=== PATIENT | female | born 1990 | race Caucasian/White ===

== ENCOUNTER 2025-03-27 15:21 | Outpatient (AMB) | payer OTHER, SELFPAY ==
--- NOTE | 2025-03-27 15:26 | MHC.PC.OV ---
Vital Signs 03/27/25 15:30 Height 5 ft 5.5 in Weight 181 lb BMI 29.7 BP 122/80 Blood Pressure Location Lt brachial Position Sitting Respiration 16 Pulse 76 Pulse Source Pulse Oximeter Temp 97.3 F Temp Source Temporal Artery Scan Pulse Oximetry (%) 98 Oxygen Delivery Method Room Air Intake Visit Reasons: New Patient [employer] Required: No Accompanied by: Self / Same As Patient Allergies doxycycline Allergy (Severe, Verified 03/27/25 15:33) unable to swallow Medication List - Last Reconciled 03/27/25 by Jasmyn Florez MD dextroamphetamine-amphetamine 15 mg ER (Adderall XR) 1 cap PO QAM Tobacco use date assessed: 03/27/25 Dental Screening Dental Screen Date: 03/27/25 Did you have a dental visit in the last 12 months?: Yes Did you have a dental problem in the last 6 months where you did not have access to dental care?: No Was dental information given to patient?: Patient has dentist HPI HPI Comments History of Present Illness Details The patient is a 34 year old female presenting to [facility]. The patient felt well for three years after a major surgery but experienced a flare-up of ovarian related symptoms six months ago. Ovarian Cysts and Endometriosis/PCOS: The patient has a history of recurrent surgeries for ovarian issues every 2-3 years, with the first at age 18. Six months ago, the patient experienced a flare-up of ovarian pain while in [place] and saw a specialist who found ovarian cysts on ultrasound. The patient recently started seeing Dr. Goldstein, who also confirmed cysts on an ultrasound two weeks ago and has another ultrasound scheduled next week to determine treatment. Due to the history of recurrent endometriosis and surgeries, Dr. Goldstein has discussed the possibility of a total hysterectomy with bilateral salpingo-oophorectomy to prevent future procedures. Abnormal Weight Gain: The patient reports significant weight gain, reaching 180 pounds from an ideal weight of 167 pounds. This weight gain occurred despite working with a personal protection specialist four days a week and adhering to a strict calorie-deficit diet for the past three months. Suspected Autoimmune Disorder: The patient reports ongoing, undiagnosed symptoms suggestive of an autoimmune disorder, experiencing flare-ups approximately every three years. Previous evaluation by vice president of academic affairs, Dr. Strickland was inconclusive. Has history of low immunoglobulin levels. Fatigue: The patient has experienced significant fatigue over the past few months. About one month ago, a cousin who is a physician prescribed iron and vitamin D supplements and administered a B12 shot, which has led to some improvement in energy levels. [facility] Medical History (Updated 03/27/25 @ 17:56 by Jasmyn Florez MD) Sepsis Endometriosis Fatigue Depression with anxiety Colitis Subclinical hyperthyroidism IgG4 subclass deficiency Surgical History (Updated 03/27/25 @ 17:56 by Jasmyn Florez MD) History of left salpingectomy Ovarian cyst Family History Other Diabetes mellitus Family history of thyroid problem Fibromyalgia Primary hypertension Social History Housing: House Patient Tobacco Use Status: Former Tobacco user Years Smoked: 10+ years e-Cigarette/Vaping Use: Currently Using service: No Current occupational status: employed Current occupation: [employer] Cognitive needs: No Hearing needs: No Vision needs: No Questionnaire PHQ-9 Over the last 2 weeks, how often have you been bothered by any of the following problems? 1. Little interest or pleasure in doing things: more than half the days 2. Feeling down, depressed, or hopeless: more than half the days 3. Trouble falling or staying asleep, or sleeping too much: more than half the days 4. Feeling tired or having little energy: nearly every day 5. Poor appetite or overeating: several days 6. Feeling bad about yourself - or that you are a failure or have let yourself or your family down: several days 7. Trouble concentrating on things, such as reading the newspaper or watching television: nearly every day 8. Moving or speaking so slowly that other people could have noticed. Or the opposite - being so fidgety or restless that you have been moving around a lot more than usual: not at all 9. Thoughts that you would be better off or of hurting yourself in some way: not at all Total score: 14 Depression Screening Interpretation: Positive Depression Screening Done: Yes 58147 - PHQ-9 Billing: Yes Source: Developed by Drs. Fareed Jasso, Shira Garcia, John Jacome and colleagues, with an educational thuy from [employer]. Thrive Questionnaire Date Thrive assessed: 03/27/25 I am a: Patient What is your living situation today?: I have a steady place to live Within the past 12 months, did the food you bought not last and you didn't have the money to get more?: Never true Within the past 12 months, did you worry whether your food would run out before you got money to buy more?: I choose not to answer this question Do you have trouble paying for medicines?: I choose not to answer this question Do you have trouble getting transportation to medical appointments?: No Do you have trouble paying your heating and electricity bill?: I choose not to answer this question Do you have trouble taking care of your child, family member or friend?: No Do you have trouble with day-to-day activities such as bathing, preparing meals, shopping, managing finances, etc.?: No Are you currently unemployed and looking for a job?: Yes Are you interested in more education?: I choose not to answer this question Please select the resources that you would like help with: None Currently or been in a relationship where the following occur: No concerns reported THRIVE Score: 0 AUDIT C Alcohol Use Questionnaire (AUDIT-C) 1. How often do you have a drink containing alcohol?: Never 3. How often do you have six or more drinks on one occasion?: Never Total Score: 0 DALTON-7 AMB Questionnaire DALTON-7 Date DALTON - 7 assessed: 03/27/25 Feeling nervous, anxious, or on edge: 3 = Nearly every day Not being able to stop or control worryin = Nearly every day Worrying too much about different things: 3 = Nearly every day Trouble relaxin = Nearly every day Being so restless that it is hard to sit still: 3 = Nearly every day Becoming easily annoyed or irritable: 3 = Nearly every day Feeling afraid as if something awful might happen: 3 = Nearly every day Total DALTON-7 score (0-4 normal; 5-9 mild; 10-14 moderate; 15-21 severe): 21 Source: Developed by Drs. Fareed Jasso, Shira Garcia, John aJcome and colleagues, with an educational thuy from [employer]. Review of Systems Narrative Review of Systems - Constitutional: Reports significant fatigue which is improving with supplements, and abnormal weight gain despite diet and exercise. - Gastrointestinal: Reports bloating and abdominal hardness. Denies significant nausea or constipation, stating bowel habits are variable but overall normal. - Genitourinary/Gynecological: Reports history of ovarian pain with flare-ups. - Psychiatric: Reports significant stress and anxiety. The patient has stopped taking Ativan. Physical exam (Primary Care) Vital Signs: Last Vital Signs Temp 97.3 F 03/27/25 15:30 Pulse 76 03/27/25 15:30 Resp 16 03/27/25 15:30 BP 122/80 03/27/25 15:30 Pulse Ox 98 03/27/25 15:30 Oxygen Delivery Method Room Air 03/27/25 15:30 BMI result Body Mass Index 29.7 Tobacco/Smoking Status: Tobacco use Status Tobacco use date assessed 03/27/25 03/27/25 15:28 Patient Tobacco Use Status Former Tobacco user 03/27/25 15:37 e-Cigarette/Vaping Use Currently Using 03/27/25 15:37 PHQ-9: PHQ-9 Score PHQ-9: Total score 14 03/27/25 15:37 Depression Screening Interpretation: Positive Thrive Assessment: Date of Thrive Assessment Date Thrive assessed 03/27/25 03/27/25 15:28 Currently or been in a relationship where the following occur: No concerns reported Narrative Physical Exam - HEENT: External auditory canals and tympanic membranes are clear. Throat is non-erythematous. - Neck/Lymphatic: No tenderness on palpation of cervical or supraclavicular lymph nodes. -Lungs: Clear to auscultation bilaterally, no wheezing. - Cardiovascular: Normal heart sounds. - Abdomen: Tender to palpation in bilateral lower quadrants, some distension, normoactive bowel sounds. Coding Level of Care Code Est Pt Level 4 (56863) Complex visit Add On G2211 Diagnoses IgG4 subclass deficiency D80.3 Fatigue, unspecified type R53.83 Fatigue type: unspecified Endometriosis N80.9 Additional Codes PHQ-9 - 38613 - PHQ-9 Billing: Yes ([id number]) Assessment & Plan Assessment & Plan (1) IgG4 subclass deficiency: Code(s): D80.3 - Selective deficiency of immunoglobulin G [IgG] subclasses Category: Medical (2) Fatigue: Code(s): R53.83 - Other fatigue Category: Medical Qualifiers: Fatigue type: unspecified Qualified Code(s): R53.83 - Other fatigue (3) Endometriosis: Code(s): N80.9 - Endometriosis, unspecified Category: Medical Plan Assessment and Plan 1. Unexplained Weight Gain - The patient reports significant weight gain despite aggressive lifestyle modifications, differential includes a hormonal or metabolic cause, possibly related to PCOS. - Plan includes ordering comprehensive labs and then initiating Zepbound trial 2. Suspected Autoimmune Disorder - The patient's history of recurrent flares and non-specific lab abnormalities warrants further investigation. - The plan is to order a comprehensive lab panel including CBC, blood cultures, full rheumatology markers (KURTIS, lupus panel), immunoglobulins (IgG), thyroid panel, and cortisol. - If immunoglobulins are abnormal, a referral will be placed to Hematology. 3. PCOS, Ovarian Cysts and Endometriosis - The plan is for the patient to continue this follow-up with [facility], with another ultrasound scheduled next week to guide further management. 4. Fatigue - The patient's fatigue has improved with recent supplementation of iron, vitamin D, and B12. - The planned lab work will reassess these levels (folate, B12, vitamin D) to evaluate response to treatment. - The patient will provide prior lab results for comparison. 5. Tobacco Use Disorder - The patient has successfully quit smoking cigarettes and now uses an electric vape occasionally. . Plan - Order comprehensive fasting labs, including CBC, blood cultures, full rheumatology panel, immunoglobulins, thyroid panel, cortisol, folate, B12, and a metabolic panel. - After labs are reviewed, will prescribe Zepbound for weight management - Based on lab results, particularly immunoglobulin levels, a referral to hematology will be considered. - Patient to continue follow-up with [facility] [employer] Dr. Goldstein for management of ovarian cysts and endometriosis. - Will request consult notes from vice president of academic affairs Dr. Hinds's office. - Schedule a follow-up visit in three months Discussion Notes I discussed with the patient the comprehensive plan to investigate the underlying causes of the ongoing symptoms, including significant weight gain, fatigue, and a suspected autoimmune condition. I explained the rationale for ordering an extensive panel of fasting labs to identify any hematologic, rheumatologic, or endocrine abnormalities, which could then guide a referral to a supervisor major appliance assembly if necessary. Patient Instructions - Please go for fasting blood tests. Do not eat or drink anything except water for 8-12 hours before your appointment. - These tests will check your blood counts, hormone levels, vitamins, and look for signs of an autoimmune condition. - After we get your lab results, we will discuss starting a weekly injection called Zepbound to help with weight loss. Orders: Orders Anti DNA DS Antibody Today D80.3 - Selective deficiency of immunoglobulin G [IgG] subclasses, E05.90 - Thyrotoxicosis, unspecified without thyrotoxic crisis or storm, R53.83 - Other fatigue Comprehensive Met. Panel Today D80.3 - Selective deficiency of immunoglobulin G [IgG] subclasses, E05.90 - Thyrotoxicosis, unspecified without thyrotoxic crisis or storm, R53.83 - Other fatigue Cortisol Random Today D80.3 - Selective deficiency of immunoglobulin G [IgG] subclasses, E05.90 - Thyrotoxicosis, unspecified without thyrotoxic crisis or storm, R53.83 - Other fatigue Cyclic Citrullinated Peptide Today D80.3 - Selective deficiency of immunoglobulin G [IgG] subclasses, E05.90 - Thyrotoxicosis, unspecified without thyrotoxic crisis or storm, R53.83 - Other fatigue Vitamin B12 Today D80.3 - Selective deficiency of immunoglobulin G [IgG] subclasses, E05.90 - Thyrotoxicosis, unspecified without thyrotoxic crisis or storm, R53.83 - Other fatigue TSH reflex Free T4 Today D80.3 - Selective deficiency of immunoglobulin G [IgG] subclasses, E05.90 - Thyrotoxicosis, unspecified without thyrotoxic crisis or storm, R53.83 - Other fatigue Sm Sm/TRUSS MAKER Antibodies Today D80.3 - Selective deficiency of immunoglobulin G [IgG] subclasses, E05.90 - Thyrotoxicosis, unspecified without thyrotoxic crisis or storm, R53.83 - Other fatigue Rheumatoid Factor Today D80.3 - Selective deficiency of immunoglobulin G [IgG] subclasses, E05.90 - Thyrotoxicosis, unspecified without thyrotoxic crisis or storm, R53.83 - Other fatigue Hemoglobin A1c Today D80.3 - Selective deficiency of immunoglobulin G [IgG] subclasses, E05.90 - Thyrotoxicosis, unspecified without thyrotoxic crisis or storm, R53.83 - Other fatigue Folate Today D80.3 - Selective deficiency of immunoglobulin G [IgG] subclasses, E05.90 - Thyrotoxicosis, unspecified without thyrotoxic crisis or storm, R53.83 - Other fatigue Ferritin Today D80.3 - Selective deficiency of immunoglobulin G [IgG] subclasses, E05.90 - Thyrotoxicosis, unspecified without thyrotoxic crisis or storm, R53.83 - Other fatigue Vitamin B1 Today D80.3 - Selective deficiency of immunoglobulin G [IgG] subclasses, E05.90 - Thyrotoxicosis, unspecified without thyrotoxic crisis or storm, R53.83 - Other fatigue Blood Culture X2 Today R53.83 - Other fatigue KURTIS Reflex Titer and Pattern Today D80.3 - Selective deficiency of immunoglobulin G [IgG] subclasses, E05.90 - Thyrotoxicosis, unspecified without thyrotoxic crisis or storm, R53.83 - Other fatigue Complete Blood Count Auto Diff Today D80.3 - Selective deficiency of immunoglobulin G [IgG] subclasses, E05.90 - Thyrotoxicosis, unspecified without thyrotoxic crisis or storm, R53.83 - Other fatigue Immunoglobulin G Subclasses Today D80.3 - Selective deficiency of immunoglobulin G [IgG] subclasses, E05.90 - Thyrotoxicosis, unspecified without thyrotoxic crisis or storm, R53.83 - Other fatigue C Reactive Protein Today D80.3 - Selective deficiency of immunoglobulin G [IgG] subclasses, E05.90 - Thyrotoxicosis, unspecified without thyrotoxic crisis or storm, R53.83 - Other fatigue Erythrocyte Sedimentation Rate Today D80.3 - Selective deficiency of immunoglobulin G [IgG] subclasses, E05.90 - Thyrotoxicosis, unspecified without thyrotoxic crisis or storm, R53.83 - Other fatigue Vitamin D 25-OH Total Today D80.3 - Selective deficiency of immunoglobulin G [IgG] subclasses, E05.90 - Thyrotoxicosis, unspecified without thyrotoxic crisis or storm, R53.83 - Other fatigue Lipid Panel Today D80.3 - Selective deficiency of immunoglobulin G [IgG] subclasses, E05.90 - Thyrotoxicosis, unspecified without thyrotoxic crisis or storm, R53.83 - Other fatigue Thyroid Peroxidase Antibodies Today D80.3 - Selective deficiency of immunoglobulin G [IgG] subclasses, E05.90 - Thyrotoxicosis, unspecified without thyrotoxic crisis or storm, R53.83 - Other fatigue IRON PROFILE Today D80.3 - Selective deficiency of immunoglobulin G [IgG] subclasses, E05.90 - Thyrotoxicosis, unspecified without thyrotoxic crisis or storm, R53.83 - Other fatigue Magnesium Today D80.3 - Selective deficiency of immunoglobulin G [IgG] subclasses, R53.83 - Other fatigue
[2025-03-27 15:30] VITALS: BP 122/80; PULSE 76; RESP 16; TEMP 36.3; O2SAT 98; BMI 29.7
--- OUTSIDE RECORDS SUMMARY | 2025-03-27 18:23 | XMS_ITS | Encounter Summary ---
Author Organization [facility] Address [address] [place] [phone] Phone Care Team Providers Care Membership Director Name Role Phone Jasmyn Florez MD Primary Care Provider + Encounter Details Date Type Department Care Team (Late st Contact Info) Description 09/11/2021 Procedure Pass [facility] Periop 1st floor [address] [place] [address] Social History Tobacco Use Types Packs/Day Years Used Date Smoking Tobacco: Every Day Cigarettes Smokeless Tobacco: Never Alcohol Use Standard Drinks/Week Comments Never 0 (1 standard drink = 0.6 oz pur e alcohol) Comments No Sex and Gender Information Value Date Recorded Sex Assigned at Female 03/02/2021 4:01 PM EST Legal Sex Female 3:59 PM EST Gender Identity Female 03/02/2021 4:01 PM EST Sexual Orientation Straight 03/02/2021 4: 01 PM EST documented as of this encounter Plan of Treatment Not on file documented as of this encounter Visit Diagnoses Not on filedocumented in this encounter Care Teams Membership Director Relationship Specialty Start Date End Date Jasmyn Florez MD PCP - General Internal Medicine 03/02/21 documented as of this encounter Additional Source Comments The information contained in this document represents components of the legal health record. It is not the complete legal health record.[facility]
--- OUTSIDE RECORDS SUMMARY | 2025-03-27 18:23 | XMS_ITS | Encounter Summary ---
Author Organization [facility] Address [address] [place] [phone] Phone Care Team Providers Care Equipment Service Lead Name Role Phone Jasmyn Florez MD Primary Care Provider + Encounter Details Date Type Department Care Team (Late st Contact Info) Description 12/10/2021 Procedure Pass [facility] [address] [place] [address] Social History Tobacco Use Types Packs/Day Years [...] PM EST documented as of this encounter Last Filed Vital Signs Vital Sign Reading Time Taken Comments Blood Pressure - - Pulse - - Temperature - - Respiratory Rate - - Oxygen Saturation - - Inhaled Oxygen Concentration - - Weight 71.7 kg (158 lb) 12/12/2021 10:36 AM EDT Height - - Body Mass Index 24.75 11/05/2021 1:45 PM EDT documented in this encounter Plan of Treatment Not on file documented as of this encounter Visit Diagnoses Not on filedocumented in this encounter Care Teams Equipment Service Lead Relationship Specialty Start Date End Date Jasmyn Florez MD PCP - General Internal Medicine 03/02/21 documented as of this encounter Additional Source Comments The information contained in this document represents components of the legal health record. It is not the complete legal health record.[facility]
--- OUTSIDE RECORDS SUMMARY | 2025-03-27 18:23 | XMS_ITS | Encounter Summary ---
Author Organization [facility] Address [address] [place] [phone] Phone Care Team Providers Care Motel Keeper Name Role Phone Jasmyn Florez MD Primary Care Provider + Encounter Details Date Type Department Care Team (Late st Contact Info) Description 09/07/2021 Procedure Pass BWF Periop 1st floor [address] [place] [address] Social History Tobacco Use Types Packs/Day Years [...] on filedocumented in this encounter Care Teams Motel Keeper Relationship Specialty Start Date End Date Jasmyn Florez MD PCP - General Internal Medicine 03/02/21 documented as of this encounter Additional Source Comments The information contained in this document represents components of the legal health record. It is not the complete legal health record.[facility]
--- OUTSIDE RECORDS SUMMARY | 2025-03-27 18:23 | XMS_ITS | Clinical Summary ---
Author Organization [facility] Address [address] [place] [id number] Phone Care Team Providers Care Furrier Apprentice Name Role Phone Jasmyn Florez MD Primary Care Provider + Allergies Active Allergy Reactions Criticality Noted Date Comments Amoxicillin Rash Low 11/05/2021 Patient had pruritic rash with erythematous papules on RUE and back, had been on amox-clav for about one week without issue Doxycycline Nausea and/or Vomiting,Throat Tightness Medium 08/31/2021 Nabumetone Nausea and/or Vomiting,Throat Tightness Medium 08/31/2021 Medications dextroamphetamine- amphetamine (ADDERALL) 30 mg Tab tablet Take 30 mg by mouth every morning. 08/01/19 22 Active LORazepam (ATIVAN) 1 MG tablet Take 1 mg by mouth every 6 (six) hours as needed for anxiety. Active ibuprofen (ADVIL,MOTRIN) 600 MG tablet Take 1 tablet (600 mg total) by mouth every 6 (six) hours as needed for pain (specific location in comments). 60 tablet 10/10/19 22 Active acetaminophen (TYLENOL) 325 mg tablet Take 2 tablets (650 mg total) by mouth every 6 (six) hours as needed for mild pain. 60 tablet 10/10/19 22 Active senna (SENOKOT) 8.6 mg tablet Take 1 tablet by mouth daily. 60 tablet 10/10/19 22 Active polyethylene glycol (MIRALAX) 17 gram/dose powder Take 17 g by mouth daily. 507 g 2 10/10/19 Active bisacodyl (DULCOLAX) [address] 1 suppository (10 mg total) rectally daily. 10 suppository 2 10/11/19 Active lidocaine (LIDODERM) 5 % Place 1 patch onto the skin daily. Remove & Discard patch within 12 hours or as directed by MD 30 patch 10/10/19 Active HYDROmorphone (DILAUDID) 2 MG tablet Take 0.5 tablets (1 mg total) by mouth every 4 (four) hours as needed. Partial fill ok 16 tablet 10/11/19 Active ondansetron (ZOFRAN-ODT) 4 MG disintegrating tablet Take 1 tablet (4 mg total) by mouth every 8 (eight) hours as needed for nausea. 10 tablet 10/23/19 Active ketoconazole (NIZORAL) 2 % shampoo Apply topically 3 (three) times a week. Apply to damp skin, lather, leave on 5 minutes, and rinse 120 mL 11 11/07/19 Active azelastine (ASTELIN) 137 mcg (0.1 %) nasal spray 2 sprays by Nasal route 2 (two) times a day. Use in each nostril as directed 30 mL 12 12/26/19 22 Active Active Problems Problem Noted Date Diagnosed Date Intraabdominal fluid collection 10/07/2021 Social History Tobacco Use Types Packs/Day Years Used Date Smoking Tobacco: Every Day Cigarettes Smokeless Tobacco: Never Alcohol Use Standard Drinks/Week Comments Never 0 (1 standard drink = 0.6 oz pur e alcohol) Education Answer Date Recorded Are you interested in more education? Not on yanira e 08/21/2022 Are you concerned about learning? Not on file 08/21/2022 No 08/21/2022 No 08/21/2022 Digital Access Answer Date Recorded No 09/21/2022 No 09/21/2022 Reliable internet access at home? Not on file 09/21/2022 Device with a working camera? Not on file Comments No Sex and Gender Information Value Date Recorded Sex Assigned at Female 03/02/2021 4:01 PM EST Legal Sex Female 3:59 PM EST Gender Identity Female 03/02/2021 4:01 PM EST Sexual Orientation Straight 03/02/2021 4: 01 PM EST Last Filed Vital Signs Vital Sign Reading Time Taken Comments Blood Pressure 130/77 12/25/2021 9:25 AM EDT Pulse 93 12/25/2021 9:25 AM EDT Temperature 36.7 C (98 F) 11/05/2021 1:45 PM EDT Respiratory Rate 18 10/10/2021 7:51 AM EDT Oxygen Saturation 98% 12/25/2021 9:25 AM EDT Inhaled Oxygen Concentration - - Weight 69.4 kg (153 lb) 12/25/2021 9:25 AM EDT Height 170.2 cm (5' 7 ) 12/25/2021 9:25 AM EDT Body Mass Index 23.96 12/25/2021 9:25 AM EDT Plan of Treatment Health Maintenance Due Date Last Done Comments DEPRESSION SCREENING 2004 SMOKING Hx and SMOKELESS TOBACCO SCREENING 2005 PNEUMOCOCCAL VACCINES (0-49 years) (1 of 2 - PCV) 10/07/2011 PAP SMEAR 2013 Adult Td,Tdap Booster 07/29/2020 07/29/2010 , 12/17/2004 INFLUENZA VACCINE (#1) 2024 COVID-19 VACCINE ( - 2024-2 6 season) 2024 MENINGOCOCCAL VACCINES (ACWY) Completed 07/29/2010 HEPATITIS C SCREENING Completed 11/05/2021 HIV ONE-TIME SCREENING (18-6 5 YEARS) Completed 11/05/2021 HEPATITIS A VACCINES Aged Out No long er eligible based on patient's age to complete this topic HIB VACCINES Aged Out No longer eligi ble based on patient's age to complete this topic MENINGOCOCCAL VACCINES (B) Aged Out N o longer eligible based on patient's age to complete this topic Medical Devices Implanted Type Area Weatherization Installer Device Identifier Shelf Expiration Date Model / Serial / Lot Dental Implants Procedures Procedure Name Priority Date/Time Associated Diagnosis Comments HEPATITIS C ANTIBODY, QUALITATIVE Routine 11/05/2021 2:53 PM EDT Need for hepatitis C screening test from Last 3 Months or Most Recently Relevant to Health Maintenance Results * Hepatitis C antibody, qualitative (11/05/2021 2:53 PM EDT) HCV Nonreactive Nonreactive [facility] Comment: 11/05/2021 2:53 PM EDT 11/05/2021 3:08 PM EDT Jane Carter MD LAB BLOOD BKR ORDERABLES Fi nal Result [facility] [address] [place] [phone] from Last 3 Months or Most Recently Relevant to Health Maintenance [place] [address] [address] [place] [address] [place] [address] [place] [address] [place] [address] [place] [address] [place] [address] P[facility] Advance Directives For more information, please contact: [phone] (9AM - 5PM [facility], Tuesday-Tuesday) * Full Code (Latest Code Status on File) Date Activated Date Inactivated Comments 10/07/2021 3:38 PM Question Answer Comments Code Status Confirmed With: Patient Care Teams Furrier Apprentice Relationship Specialty Start Date End Date Jasmyn Florez MD PCP - General Internal Medicine 03/02/21 Additional Source Comments The information contained in this document represents components of the legal health record. It is not the complete legal health record.[facility]
--- OUTSIDE RECORDS SUMMARY | 2025-03-27 18:23 | XMS_ITS | Encounter Summary ---
Author Organization [facility] Address [address] [facility] [address] [place] [phone] Phone Care Team Providers Care Muck Miner Blasting Name Role Phone Jasmyn Florez MD Primary Care Provider + Encounter Details Date Type Department Care Team (Late st Contact Info) Description 10/08/[address] [facility] Cross Sectional Interventional Radiology [address] [place] [address] Social History Tobacco Use Types Packs/Day Years [...] on filedocumented in this encounter Care Teams Muck Miner Blasting Relationship Specialty Start Date End Date Jasmyn Florez MD PCP - General Internal Medicine 03/02/21 documented as of this encounter Additional Source Comments The information contained in this document represents components of the legal health record. It is not the complete legal health record.[facility]
== END 2025-03-27 17:19 | disposition home or self-care (01) ==
LOC: HO.HMCHD 15:22
PROVIDERS: PCP Internal Medicine; Visit Provider Internal Medicine
DX: D80.3 Selective deficiency of immunoglobulin G [IgG] subclasses (principal); R53.83 Other fatigue; N80.9 Endometriosis, unspecified

== ENCOUNTER → 2025-03-27 15:21 | Outpatient (BNVA) | payer OTHER, SELFPAY | PROVIDERS: PCP Internal Medicine; Visit Provider Internal Medicine | DX: Z13.31 Encounter for screening for depression (principal); Z13.39 Encounter for screening examination for other mental health and behavioral disorders | CPT/HCPCS: 96127 ==

== ENCOUNTER 2025-03-29 11:59 | Outpatient (REF) | payer OTHER, SELFPAY ==
[2025-03-29 13:06] LABS: MANUAL DIFF FLAG NO
[2025-03-29 13:24] LABS: Hematocrit 38.7 % (37.0-47.0); Hemoglobin 12.6 g/dl (12.0-16.0); Imm Gran Abs Auto 0.01 X10*3/uL (0.00-0.03); Imm Gran Pct Auto 0.1 % (0.0-0.4); Lymphocytes Absolute Auto 3.9 X10*3/uL (1.2-4.9); Mean Corpuscular HGB Conc 32.6 g/dl (31.0-35.0); Mean Corpuscular Hemoglobin 27.8 pg (27.0-33.0); Mean Corpuscular Volume 85.4 fL (80.0-98.0); NRBC Abs Auto 0.000 X10*3/uL (0.0-0.012); NRBC Pct Auto 0.0 /100WBC (0.0-0.2); Platelet Count 288 X10*3/uL (160-400); Red Blood Count 4.53 X10*6/uL (4.20-5.50); White Blood Count 8.3 X10*3/uL (4.8-10.8)
[2025-03-29 14:07] LABS: Erythrocyte Sedimentation Rate 8 MM/HR (0-20)
[2025-03-29 14:39] LABS: Vitamin B12 452 pg/mL (200-900)
[2025-03-29 19:07] LABS: Alanine Aminotransferase 18 U/L (0-31); Albumin Level 5.0 g/dL (3.5-5.0); Alkaline Phosphatase 58 U/L (39-117); Anion Gap 10 (12-20); Aspartate Amino Transferase 20 U/L (5-31); Blood Urea Nitrogen 8 mg/dL (9-16); Calcium 9.1 mg/dL (8.4-10.2); Carbon Dioxide 25 mmol/L (22-29); Chloride 110 mmol/L (96-108); Cholesterol 199 mg/dL (<200); Estimated Glomerular Filt Rate > 60; HDL Cholesterol 46 mg/dL (>40); Potassium 4.0 mmol/L (3.3-5.1); Sodium 141 mmol/L (135-145); Total Protein 7.7 g/dL (6.5-8.0); Triglycerides 124 mg/dL (<150)
[2025-04-01 13:02] LABS: Immunoglobulin G Subclass 1 595 mg/dL (382-929); Immunoglobulin G Subclass 2 389 mg/dL (241-700); Immunoglobulin G Subclass 3 44 mg/dL (22-178); Immunoglobulin G Subclass 4 0.5 mg/dL (4-86); Immunoglobulin G Total 1043 mg/dL (600-1640)
[2025-04-03 10:59] LABS: Anti Nuclear Antibody Screen POSITIVE (NEGATIVE); Anti Nuclear Antibody Titer 1:160 titer
== END 2025-03-29 12:00 | disposition home or self-care (01) ==
LOC: HO.10HDL 11:59
PROVIDERS: Visit Provider Internal Medicine
DX: Z01.84 Encounter for antibody response examination (principal); Z13.21 Encounter for screening for nutritional disorder; E05.90 Thyrotoxicosis, unspecified without thyrotoxic crisis or storm; D80.3 Selective deficiency of immunoglobulin G [IgG] subclasses; R53.83 Other fatigue
CPT/HCPCS: 36415; 80053; 80061; 82306; 82533; 82607; 82784; 85025; 85652; 86038; 86039; 86140; 86200; 86225